=== PATIENT | female | born 1965 | race Caucasian/White ===

== ENCOUNTER 2025-01-07 01:07 | Emergency (ER) | payer SELFPAY ==
[2025-01-07 00:59] VITALS: BP 143/73; PULSE 73; RESP 16; TEMP 36.4; O2SAT 100
[2025-01-07 06:47] LABS: Influenza A QL RT-PCR Positive (Negative); Influenza B QL RT-PCR Negative (Negative); RSV RNA, RT-PCR Negative (Negative); SARS-CoV-2 RNA PCR Negative (Negative)
--- NOTE | 2025-01-07 06:52 | ED_ITS ---
HPI - URI/Sore Throat General Chief Complaint: Upper Respiratory Infection Stated Complaint: cough, it's my sinuses Time Seen by Provider: 01/07/25 06:51 History of Present Illness HPI Narrative: 59-year-old female with history of early-onset dementia presenting from her senior living facility via EMS for concerns of cough and feeling unwell. She was otherwise in her normal state of health. Does have a sick contact exposure at the facility. Denies any chest pain shortness a breath. Patient has no complaints at this time. She is enquiring about going back to her home. Patient appears at her baseline mentation which is A&O x2. She is not any distress. Related Data Allergies Allergy/AdvReac Type Severity Reaction Status Date / Time No Known Allergies Allergy Verified 01/07/25 01:11 Review of Systems Review of Systems: As reviewed above in HPI Exam Narrative: GENERAL: [Well-appearing, well-nourished, and in no acute distress.] HEAD: [Normocephalic, atraumatic.] EYES: [PERRLA and EOMI.] ENT: Nares clear, no rhinorrhea or epistaxis. Mucous membranes moist. NECK: Supple. CHEST: [Clear to auscultation. No respiratory distress.] HEART: [Regular rate and rhythm]. No murmur heard. [Normal peripheral pulses.] ABDOMEN: [Soft, nondistended], [nontender], [No rigidity or guarding] EXTREMITIES: Normal range of motion. [No edema.] SKIN: Warm, dry, no rash. NEURO: [No focal deficits]. Alert and oriented x2 which is her baseline mentation. PSYCH: [Normal mood and affect.] Course Vital Signs Vital signs: Vital Signs Temperature 36.4 C 01/07/25 00:59 Pulse Rate 73 01/07/25 00:59 Respiratory Rate 16 01/07/25 00:59 Blood Pressure 143/73 H 01/07/25 00:59 Pulse Oximetry 100 01/07/25 00:59 Oxygen Delivery Room Air 01/07/25 00:59 Temperature 36.4 C 01/07/25 00:59 Pulse Rate 73 01/07/25 00:59 Respiratory Rate 16 01/07/25 00:59 Blood Pressure 143/73 H 01/07/25 00:59 Pulse Oximetry 100 01/07/25 00:59 Oxygen Delivery Room Air 01/07/25 00:59 MDM - URI/Sore Throat MDM Narrative Medical decision making narrative: 59-year-old female with history of early-onset dementia presenting to the emergency department via EMS for concerns of a cough and not feeling well. Patient has no complaints but states that she is feeling a cough and some sinus pressure. She is otherwise very well-appearing not any acute distress. Ambulatory in the emergency department. Normal vital signs, unremarkable examination with clear breath sounds, posterior oropharynx without any erythema or exudates. No coughing during the examination. Overall well-appearing. Patient did test positive for influenza A which likely explains her symptomatology. Patient was encouraged to take [id number] pain/flu medications and was safe for discharge back to her facility with return precautions. Patient verbalized understanding and had no further complaints or issues. Medical Records Attestation: I reviewed the patient's medical records. Lab Data Attestation: I reviewed the patient's lab results. Labs: Lab Results 01/07/25 Range/Units 05:48 Influenza A (RT-PCR) Positive A (Negative) Influenza B (RT-PCR) Negative (Negative) RSV (RT-PCR) Negative (Negative) SARS-CoV-2 RNA (RT-PCR) Negative (Negative) Discharge Plan Discharge Clinical Impression: Upper respiratory infection, Influenza Patient Disposition: NH Intermediate/Asst Living Condition: Stable Instructions: Antibiotic Form, Influenza (ED) Additional Instructions: You tested positive for influenza A. Follow-up with regular doctor, Tylenol and ibuprofen for any pain. Return with any concerns. Patient Language: Tunisian Stand Alone Forms: Assisted Discharge Time of Disposition: 06:52
--- OUTSIDE RECORDS SUMMARY | 2025-01-07 07:03 | XMS_ITS | Continuity of Care Document ---
Author Organization [facility] Address [address] [facility] [address] [place] [address] Phone Care Team Providers Care Nurse Informaticist Name Role Phone Derheimer OD OD, Destiney Unavailable Unavai lable Allergies, Adverse Reactions, Alerts Substance Reaction Status Criticality No Known Allergies Active No Inform ation Medications Medication Instructions Dosage Effective Dates (start - stop) Status Comments Lipitor 10 mg tablet take 1 tablet by or al route every day 10 MG - Active verapamil ER (PM) 100 mg capsule 24hr pellet CT,ext.release take 1 capsule by oral route every day at bedtime 100 MG - Active Lipitor 10 mg tablet take 1 tablet by or al route every day 10 MG - Active sertraline 25 mg tablet take 1 tablet by oral route every day 25 MG - Active Pristiq 25 mg tablet,extended release take 2 tablet by oral route every day at approximately the same time each day 50 MG - Active donepezil 5 mg tablet take 1 tablet by oral route every day in the evening 5 MG - Active Plavix 75 mg tablet take 1 tablet by ora l route every day 75 MG - Active Procedures Procedure Date EYE EXAM, NEW PATIENT Advance Directives Directive Yes / No Effective Date File Name No Information Encounters Encounter Description Practice Location Reason(s) For Visit Diagnoses Date Provider Providers Copied on Encounter [facility], [id number] [place] [address] [address], [place], [place], [id number], [place] tel:[phone] OPH CONSULT [facility] black floaters OS more then OD (chief complaint) Macular pucker, bilateralPVD (posterior vitreous detachment), left eyeVitreous floaters of right eyeInsufficienc y of tear film of both eyes 2 Derheimer OD Destiney. [address], [address], [place], [place], [id number], [place]. tel:[phone] Family History Family Member Type Diagnosis Age At Onset No Information Payers Payer name Insurance type Covered constitution party ID Authoriza tion(s) No Information Social History Type Description Quantity Date Captured Comments Alcohol Use Details Unknown Caffeine Use Details Unknown Tobacco Use Status Current non-smoker Smoking Status Never smoker Non-Smoking Tobacco Use Details : No Details Available : No Details Available Sex Female Chief Complaint And Reason For Visit From encounter dated '04/12/2022 14:30'. black floaters OS more then OD (chief complaint). Description: The 56 year old female presents for evaluation of black floaters OS more then OD in the left > right. It affects OS > OD. The symptom is constant. The condition is moderate. She states she has black floaters OS more thenOD. She does not have any flashes of light. She went to Dr. Foster and he told her he did not know how to help her. She came here for a second opinion. Her current glasses are still working well. Plan Of Treatment Date Type Action Status No Information History Of Present Illness Encounter Date Complaint History Of Prese nt Illness black floaters OS more then OD T he 56 year old female presents for evaluation of black floaters OS more then OD in the left > right. It affects OS > OD. The symptom is constant. The condition is moderate. She states she has black floaters OS more then OD. She does not have any flashes of light. She went to Dr. Foster and he told her he did not know how to help her. She came here for a second opinion. Her current glasses are still working well. Instructions Date Instruction Additional Infor naomi Impression/Plan Related to Macul ar pucker, bilateral Impression/Plan Related to PVD ( posterior vitreous detachment), left eye Impression/Plan Related to Vitre ous floaters of right eye Impression/Plan Related to Insuf ficiency of tear film of both eyes Assessments Type Assessment Date assessment Macular pucker, bilateral assessment PVD (posterior vitreous detachme nt), left eye assessment Vitreous floaters of right eye M assessment Insufficiency of tear film of miguel th eyes impression PVD (posterior vitre ous detachment), left eye: H43.812. no RT / RD impression Vitreous floaters of right eye: H43.391 impression Macular pucker, bila teral: H35.373. mild and not signif. affecting vision impression Insufficiency of tear film of miguel th eyes: H04.123
== END 2025-01-07 08:07 ==
PROVIDERS: Emergency Provider Student in an Organized Health Care Education/Training Program
DX: J10.1 Influenza due to other identified influenza virus with other respiratory manifestations (principal); F03.90 Unspecified dementia, unspecified severity, without behavioral disturbance, psychotic disturbance, mood disturbance, and anxiety; Z20.822 Contact with and (suspected) exposure to COVID-19
CPT/HCPCS: 87637; 99283

== ENCOUNTER 2025-04-14 07:52 | Emergency (ER) | payer MEDICARE, OTHER, SELFPAY ==
--- NOTE | ~2025-04-14 | XR_ITS ---
EXAMINATION: XR chest 2V DATE: 04/14/2025 08:41 INDICATION: Midsternal chest pain. TECHNIQUE: PA and lateral views of the chest were obtained. COMPARISON: None FINDINGS: The lungs are clear with no focal airspace opacities, pulmonary edema, pleural effusion or pneumothor ax. The cardiomediastinal silhouette is normal. Postoperative changes with multiple surgical clips at the left axilla consistent with prior lymph node dissection. IMPRESSION: 1. No acute cardiopulmonary disease. Reviewed, dictated and finalized at location B.
[2025-04-14 07:50] VITALS: BP 130/79; PULSE 61; RESP 12; TEMP 36.7; O2SAT 97
--- NOTE | 2025-04-14 07:55 | ECG_ITS ---
Test Date: 2025-04-14 08:06:45 Measurements Intervals [place] Rate: 66 P: 13 MT: 136 QRS: 34 QRSD: 105 T: 8 QT: 432 QTc: 454 Interpretive Statements SINUS RHYTHM NONSPECIFIC T-WAVE ABNORMALITY- ANTEROLAT/INF LEADS BORDERLINE ECG No previous ECG available for comparison Electronically Signed On 04-14-2025 08:35:35 CDT by David Jensen D.O.
[2025-04-14 08:21] LABS: Basophils Absolute Auto 0.1 K/mm3 (0.0-0.1); Basophils Percent Auto 0.7 % (0.2-1.2); Eosinophils Absolute Auto 0.1 K/mm3 (0-0.3); Eosinophils Percent Auto 1.6 % (0-4.4); Hematocrit 42.8 % (37.0-47.0); Immature Granulocyte Absolute 0.07 K/mm3 (0.00-0.031); Lymphocytes Absolute Auto 1.49 K/mm3 (0.9-3.2); Lymphocytes Percent Auto 20.4 % (18.3-44.2); Mean Corpuscular HGB Conc 32.7 g/dl (32-36); Mean Corpuscular Hemoglobin 29.4 pg (26-34); Mean Corpuscular Volume 89.9 fl (80-100); Mean Platelet Volume 9.5 fl (7.4-10.4); Monocytes Absolute Auto 0.6 K/mm3 (0.1-0.6); Monocytes Percent Auto 7.9 % (2.6-8.5); Neutrophils Percent Auto 68.4 % (45.5-73.1); Platelet Count Result 217 k/mm3 (150-375); Red Blood Count 4.76 M/mm3 (4.2-5.4); Red Cell Distribution Width 13.3 % (11.5-14.5); White Blood Count 7.3 K/mm3 (4.5-10.0)
[2025-04-14 08:35] LABS: Alanine Aminotransferase 64 U/L (6-35); Albumin Level 4.4 g/dL (3.5-5.1); Alkaline Phosphatase 87 U/L (38-126); Anion Gap 8 mmol/L (4-12); Aspartate Amino Transferase 59 U/L (14-36); Bilirubin,Total 0.6 mg/dL (0.2-1.3); Blood Urea Nitrogen 17 mg/dL (7-17); Calcium 9.5 mg/dL (8.4-10.2); Carbon Dioxide 26 mmol/L (22-30); Chloride 105 mmol/L (98-107); Estimated Glomerular Filt Rate > 60; Glucose 112 mg/dL (65-110); Lipase 119 U/L (23-300); Potassium 4.3 mmol/L (3.4-5.0); Sodium 139 mmol/L (137-145)
[2025-04-14 08:39] LABS: Prothrombin Time 13.2 Seconds (11.1-14.7)
[2025-04-14 08:40] LABS: Partial Thromboplastin Time 24.6 Seconds (22.3-36.8)
[2025-04-14 08:46] LABS: Troponin I < 0.012 ng/mL (0.000-0.034)
[2025-04-14 09:00] VITALS: BP 154/77; PULSE 60; RESP 16; O2SAT 98
[2025-04-14 10:00] VITALS: BP 119/74; PULSE 60; RESP 16; O2SAT 99
--- NOTE | 2025-04-14 10:02 | ED.CHESTPAIN ---
HPI - Chest Pain General Chief Complaint: Chest Pain Stated Complaint: CP Time Seen by Provider: 04/14/25 08:30 Source: patient and EMS Mode of arrival: EMS Limitations: dementia History of Present Illness HPI narrative: 59-year-old with a history of dementia was brought in from assisted with the complaints of midsternal chest pain which happened earlier. Upon arrival to the ER she presently has no complaints. Denies any shortness of breath. MD complaint: chest pain Onset (ago): hour(s) (2) Timing of current episode: constant Pain radiation: none Related Data Allergies Allergy/AdvReac Type Severity Reaction Status Date / Time No Known Allergies Allergy Verified 01/07/25 01:11 Review of Systems Review of Systems: All systems reviewed & are unremarkable except as noted in HPI and below Constitutional: Constitutional: Reports no additional constitutional complaints Eyes: Eyes: Reports no additional eye complaints Cardiovascular: Cardiovascular: Reports as per HPI and Reports no additional cardiovascular complaints Respiratory: Respiratory: Reports no additional respiratory complaints Gastrointestinal: Gastrointestinal: Reports no additional gastrointestinal complaints Musculoskeletal: Musculoskeletal: Reports no additional musculoskeletal complaints Exam Narrative: GENERAL: Well-appearing, well-nourished, and in no acute distress. HEAD: Normocephalic, atraumatic. EYES: PERRLA and EOMI. ENT: Nares clear, no rhinorrhea or epistaxis. Mucous membranes moist. NECK: Supple. CHEST: Clear to auscultation. No respiratory distress. HEART: Regular rate and rhythm. No murmur heard. Normal peripheral pulses. ABDOMEN: Soft, nontender, nondistended, normal active bowel sounds. EXTREMITIES: Normal range of motion. No edema. SKIN: Warm, dry, no rash. NEURO: No focal deficits. Alert and oriented x2 PSYCH: Normal mood and affect. Course Course Emergency Course: Patient has no further episodes of chest pain. She is very agitated without she is being kept in the room for ever. She wants to go back to her home. I did inform her about the lab work, EKG findings. Vital Signs Vital signs: Vital Signs Temperature 36.7 C 04/14/25 07:50 Pulse Rate 61 04/14/25 07:50 Respiratory Rate 12 04/14/25 07:50 Blood Pressure 130/79 04/14/25 07:50 Pulse Oximetry 97 04/14/25 07:50 Oxygen Delivery Room Air 04/14/25 07:50 Temperature 36.7 C 04/14/25 07:50 Pulse Rate 61 04/14/25 07:50 Respiratory Rate 12 04/14/25 07:50 Blood Pressure 130/79 04/14/25 07:50 Pulse Oximetry 97 04/14/25 07:50 Oxygen Delivery Room Air 04/14/25 07:50 MDM - Chest Pain Differential Diagnosis Differential diagnosis: Likely stable angina, unstable angina pectoris, atypical chest pain and chest pain Medical Records Data Attestation: I reviewed the patient's medical records. Lab Data Attestation: I reviewed the patient's lab results. 04/14/25 08:15 04/14/25 08:15 Labs: Lab Results 04/14/25 Range/Units 08:15 WBC 7.3 (4.5-10.0) K/mm3 RBC 4.76 (4.2-5.4) M/mm3 Hgb 14.0 (12.0-15.0) g/dL Hct 42.8 (37.0-47.0) % MCV 89.9 (80-100) fl MCH 29.4 (26-34) pg MCHC 32.7 (32-36) g/dl RDW 13.3 (11.5-14.5) % Plt Count 217 (150-375) k/mm3 MPV 9.5 (7.4-10.4) fl Immature Gran % (Auto) 1.0 H (0-0.5) % Neut % (Auto) 68.4 (45.5-73.1) % Lymph % (Auto) 20.4 (18.3-44.2) % [place] % (Auto) 7.9 (2.6-8.5) % Eos % (Auto) 1.6 (0-4.4) % Baso % (Auto) 0.7 (0.2-1.2) % Lymph # (Auto) 1.49 (0.9-3.2) K/mm3 [place] # (Auto) 0.6 (0.1-0.6) K/mm3 Eos # (Auto) 0.1 (0-0.3) K/mm3 Baso # (Auto) 0.1 (0.0-0.1) K/mm3 Abs Immat Gran (auto) 0.07 H (0.00-0.031) K/mm3 Absolute Neuts (auto) 5.0 (1.3-6.7) K/mm3 Absolute Nucleated RBC 0.000 (0.0-0.012) K/mm3 Nucleated RBC % 0.0 (0.0-0.2) % PT 13.2 (11.1-14.7) Seconds INR 1.0 APTT 24.6 (22.3-36.8) Seconds Sodium 139 (137-145) mmol/L Potassium 4.3 (3.4-5.0) mmol/L Chloride 105 (98-107) mmol/L Carbon Dioxide 26 (22-30) mmol/L Anion Gap 8 (4-12) mmol/L BUN 17 (7-17) mg/dL Creatinine 0.66 L (0.7-1.0) mg/dL Estim Creat Clear Calc Not Reportable Estimated GFR > 60 (59 - ) Glucose 112 H (65-110) mg/dL Calcium 9.5 (8.4-10.2) mg/dL Total Bilirubin 0.6 (0.2-1.3) mg/dL AST 59 H (14-36) U/L ALT 64 H (6-35) U/L Alkaline Phosphatase 87 (38-126) U/L Troponin I < 0.012 (0.000-0.034) ng/mL Total Protein 8.0 (6.3-8.2) g/dL Albumin 4.4 (3.5-5.1) g/dL Lipase 119 (23-300) U/L Imaging Data Radiologist's impression: ITS Impressions Chest X-Ray 04/14/25 08:50 IMPRESSION: 1. No acute cardiopulmonary disease. ECG Data EKG #1: ECG completion date: 04/14/25 ECG completion time: 11:34 EKG Interpretation: normal rate (66), sinus rhythm, no ectopy, non-specific ST changes, normal QRS and NL axis Discharge Plan Discharge Clinical Impression: Chest pain Qualifiers: Chest pain type: unspecified Qualified Code(s): R07.9 - Chest pain, unspecified Patient Disposition: Home Condition: Stable Instructions: Chest Pain (ED) Additional Instructions: continue home medications, follow with your doctor. Patient Language: Pakistani Follow-up/Referrals: PHYSICIAN NOT ON STAFF,NONSTAFF [Non-Staff] - Fercho Hu MD [Physician] -
--- OUTSIDE RECORDS SUMMARY | 2025-04-14 10:59 | XMS_ITS | Continuity of Care Document ---
Author Organization [facility] Address [address] [facility] [address] [place] [address] Phone Care Team Providers Care Teacher Asst Name Role Phone Derheimer OD OD, Destiney [...] Provider Providers Copied on Encounter [facility], [address] [place] [address] [address], [place], [place], [id number], [place] tel:[phone] OPH [facility] black floaters OS more then OD (chief complaint) Macular pucker, bilateralPVD (posterior vitreous detachment), left eyeVitreous floaters of right eyeInsufficienc y of tear film of both eyes 2 Derheimer OD Destiney. [address], [place], [place], [id number], [place]. tel:[phone] Family History Family Member Type Diagnosis Age At Onset No Information Payers Payer name Insurance type Covered democrat ID Authoriza tion(s) No Information Social History [...] Her current glasses are still working well. Reason For Referral Reason For Referral No Information History Of Present Illness Encounter [...] Her current glasses are still working well. Functional Status Date Functional Assessmen t No Information Instructions Date Instruction Additional Infor mation Impression/Plan Related to Macul ar pucker, bilateral [...] tear film of miguel th eyes: H04.123 Patient Care Teams Name Effective Dates (start - stop) Status Members No Information
[2025-04-14 11:00] VITALS: BP 130/73; PULSE 69; RESP 14; O2SAT 100
[2025-04-14 11:24] LABS: Troponin I < 0.012 ng/mL (0.000-0.034)
== END 2025-04-14 11:50 ==
PROVIDERS: Emergency Provider Family Medicine
DX: R07.9 Chest pain, unspecified (principal)
CPT/HCPCS: 36415; 71046; 80053; 83690; 84484; 85025; 85610; 85730; 93005; 99284

== ENCOUNTER 2025-09-05 14:07 | Outpatient (CLI) | payer MEDICARE, OTHER, SELFPAY ==
--- NOTE | ~2025-09-05 | MM_ITS ---
CORRECTED REPORT corrected ordering provider to Kamilah Renee NP JMDanny 09/08/2025 This report was recreated on 09/08/2025. Original report was EXAMINATION: MM screening basia BI w marcie HISTORY: Screening TECHNIQUE: Craniocaudal and mediolateral oblique 3-D tomosynthesis images were obtained and synthetic 2-D images were generated. CAD analysis was submitted and interpreted. COMPARISON: No prior mammogram is available for comparison at this institution. BREAST PARENCHYMAL COMPOSITION: Dense: The breasts are heterogeneously dense, which may obscure small masses FINDINGS: There are bilateral asymmetries centered in the upper outer quadrant of both breasts. There are no suspicious calcifications. No skin thickening. IMPRESSION: 1. Bilateral breast asymmetries. 2. Additional mammographic views and possible breast ultrasound are recommended. BI-RADS Category 0: Incomplete: Needs additional imaging evaluation. Reviewed, dictated and finalized at location O. IMPRESSION: 1. Bilateral breast asymmetries. 2. Additional mammographic views and possible breast ultrasound are recommended . BI-RADS Category 0: Incomplete: Needs additional imaging evaluation.
== END 2025-09-05 14:08 | disposition home or self-care (01) ==
DX: Z12.31 Encounter for screening mammogram for malignant neoplasm of breast (principal); R92.8 Other abnormal and inconclusive findings on diagnostic imaging of breast
CPT/HCPCS: 77063; 77067